=== PATIENT | male | born 1975 | race Caucasian/White ===

== ENCOUNTER 2019-03-14 11:12 | Inpatient (IN) ==
[2019-03-14 11:48] LABS: BASO# 0.03 X1000 (0.0-0.2); BASO% 0.1 % (0.0-0.8); EOS# 0.04 X1000 (0.0-0.7); EOS% 0.2 % (0.0-10.0); HEMOGLOBIN 15.1 g/dL (14.0-18.0); IMM GRAN# 0.12 X1000 (0.0-0.04); IMM GRAN% 0.5 % (0.0-0.5); LYMPH% 4.5 % (20.5-51.1); MCHC 34.3 g/dL (33-37); MCV 96.1 FL (81-99); MONO# 1.05 X1000 (0.11-0.59); MONO% 4.3 % (1.7-9.3); MPV 9.4 FL (7.4-10.4); NEUT# 21.94 X1000 (1.4-6.5); NEUT% 90.4 % (42.2-75.2); PLT 260 X1000 (130-400); RBC 4.58 XMIL (4.7-6.1); WBC 24.28 X1000 (4.8-10.8)
[2019-03-14 11:50] LABS: BILIRUBIN URINE NEGATIVE (NEGATIVE); BLOOD URINE 3+ (NEGATIVE); CLARITY CLEAR (CLEAR); COLOR YELLOW; GLUCOSE URINE NEGATIVE (NEGATIVE); KETONE URINE TRACE mg/dL (NEGATIVE); LEUKOCYTES URINE TRACE (NEGATIVE); NITRITE URINE NEGATIVE (NEGATIVE); PH URINE 6.5; PROTEIN URINE 1+(30 mg/dL) mg/dL (NEGATIVE); SP GRAVITY URINE 1.015; UROBILINOGEN URINE NORMAL
[2019-03-14 11:51] LABS: URINE EPITHELIAL CELLS <10 /HPF (<10); URINE RBC 20-40 /HPF (<10); URINE SOURCE CLEAN CATCH; URINE WBC <10 /HPF (<10)
[2019-03-14 11:58] LABS: ANISOCYTOSIS 1+; BANDS 1 % (0-1); LYMPHS 5 % (21-51); MONO 4 % (1-9); SEGS 90 % (42-75)
[2019-03-14 12:12] LABS: AGAP 15; ALBUMIN 4.6 g/dL (3.5-5.0); ALKALINE PHOSPHATASE 52 U/L (32-122); BUN 11 mg/dL (8-22); CALCIUM 10.1 mg/dL (8.8-10.2); CHLORIDE 94 mmol/L (98-107); COSMO 265; CREATININE 0.9 mg/dL (0.7-1.2); ESTIMATED GFR > 60; GLUCOSE 114 mg/dL (70-104); GOT 20 U/L (10-34); GPT 19 U/L (10-44); SODIUM 132 mmol/L (136-145); TCO2 24 mmol/L (25-35); TOTAL PROTEIN 8.2 g/dL (6.3-8.3)
[2019-03-14 12:17] LABS: LIPASE > 3000 U/L (13-60)
--- NOTE | 2019-03-14 12:37 | Diag Imaging Result Doc PS360 ---
EXAM: FLAT/UPRIGHT ABD/1 VIEW CHEST HISTORY: abd pain TECHNIQUE: Three views COMPARISON: None. FINDINGS: The lungs are well expanded. No pneumonia. No cardiomegaly. No free air beneath the diaphragm. The gallbladder has been removed. Mild air distended loops of bowel in the right abdomen. There is stool in the proximal colon. No organomegaly. IMPRESSION: Nonspecific bowel gas pattern. Follow-up films may be beneficial. Electronically signed by Rakesh Chavarria 03/14/2019 12:35 PM
[2019-03-14] MEDS ORDERED: DILAUDID IV ONE ×2 (13:03→14:41)
[2019-03-14] MEDS ORDERED: ZOFRAN IV ONE (13:03)
[2019-03-14 14:18] LABS: PROTIME 11.5 Seconds (11.0-16.0)
[2019-03-14 14:19] LABS: PTT 25.6 Seconds (22.3-41.8)
--- NOTE | 2019-03-14 14:49 | Diag Imaging Result Doc PS360 ---
EXAM: CT ABD/PELVIS W/IV CONT ONLY HISTORY: abdo pain TECHNIQUE: This exam was performed using automated exposure control, adjustment of mA or kV according to patient size, and/or use of iterative reconstruction technique. COMPARISON: 04/29/2014 FINDINGS: Lung bases: Unremarkable. There is marked peripancreatic soft tissue stranding and moderate free peripancreatic fluid consistent with acute pancreatitis. There is vague hypodensity in the region of the pancreatic head image 72 sequence 3 and image 77 sequence four consistent with more focal edema. No evidence for pseudocyst or abscess. Splenic vein is patent. There is adjacent focal thickening of the gastric antrum and descending duodenum. Hepatobiliary: Normal liver attenuation. No intrahepatic or extrahepatic biliary ductal dilatation is identified. Cholecystectomy.. No suspicious masses are appreciated. Adrenal glands/Spleen: Normal size and enhancement. No cysts or solid masses are appreciated. Kidneys: No nephrolithiasis or hydronephrosis is appreciated. Normal bilateral enhancement. No suspicious masses. Retroperitoneum: Normal caliber aorta. No lymphadenopathy. Appendix: Normal. No evidence for acute appendicitis. No pneumoperitoneum is identified. Pelvis: Reproductive organs show no acute abnormality. Urinary bladder is unremarkable. No acute bony abnormality is demonstrated. IMPRESSION: Findings consistent with acute pancreatitis with moderate peripancreatic fluid. Focal area of hypodensity pancreatic head may represent more focal edema. Clinical correlation and follow-up recommended. Electronically signed by Zayra Davis 03/14/2019 2:47 PM
[2019-03-14 14:53] LABS: INR 0.8
--- NOTE | 2019-03-14 14:57 | PROVIDER DOCUMENTATION ---
This chart was entered by Tali Welch Scribe, acting as scribe for Bk Uribe MD. HPI-Abdominal Pain/GI Problem - General Chief Complaint: Abdominal Pain Stated Complaint: STOMACH PAIN Time Seen by Provider: 03/14/19 12:46 Source: patient Allergies/Adverse Reactions: Patient Allergies Allergy/AdvReac Type Severity Reaction Status Date / Time No Known Allergies Allergy Verified 04/29/14 08:36 Home Medications: Home Medication List Medication Instructions Recorded Confirmed Last Taken Type NK [No Home Medications] 06/07/18 06/07/18 Unknown History - History of Present Illness-ABD Nature of Presenting Problems: Patient is a 43 year old male who presents with RUQ and RLQ abdominal pain. States nausea and vomiting with abdominal pain. Reports symptoms started 24 hours ago. History of pancreatitis. Denies diarrhea and constipation. States being seen by PCP this morning and was prescribed pain and nausea medications. Abdominal Pain Onset Location: reports: RUQ, RLQ Quality of Pain: reports: aching Severity in ED: reports: mild Onset/Duration: reports: 24 hours ago Timing: reports: still present Associated Symptoms: reports: nausea, vomiting. denies: constipation, diarrhea, fever/chills Last BM: this morning # of Vomiting Episodes: 1 Bruising or Bleeding Gums?: No Similar Symptoms Previously?: Yes Recently seen or treated by another doctor?: Yes Review of Systems - Adult - REVIEW OF SYSTEMS - ADULT Constitutional: reports: no symptoms reported. denies: chills, fever, fatique Eyes: reports: no symptoms reported Ears, Nose, Mouth & Throat: reports: no symptoms reported Cardiovascular: reports: no symptoms reported Respiratory: reports: no symptoms reported Gastrointestinal: reports: see HPI, abdominal pain, nausea, vomiting. denies: constipation, diarrhea Genitourinary: reports: no symptoms reported Musculoskeletal: reports: no symptoms reported Integumentary: reports: no symptoms reported Neurological: reports: no symptoms reported Psychiatric: reports: no symptoms reported Endocrine: reports: no symptoms reported Hematologic/Lymphatic: reports: no symptoms reported Allergic/Immunologic: reports: no symptoms reported All Other Systems: Reviewed and Negative Past History - Adult - PAST MEDICAL HISTORY-ADULT Review of Records: reports: Old Records Reviewed, Nursing Assessment Review, Medications Reviewed, Social history reviewed & non-contributory. Major Childhood Illnesses: reports: denies history Cardiovascular: reports: HTN Respiratory: reports: denies history Gastrointestinal: reports: cholelithiasis, pancreatitis Obstetrical/Gynecological: reports: denies history Genitourinary: reports: denies history Musculoskeletal: reports: denies history Neurological: reports: denies history Psychiatric: reports: denies history Endocrine/Immune: reports: denies history Other Conditions: reports: denies history - PRIOR SURGERIES/PROCEDURES Surgical/Procedure History: reports: cholecystectomy - IMMUNIZATION STATUS Childhood Immunizations: See Nurse Assessment Flu Vaccine: See Nurse Assessment - FAMILY HISTORY Family History: reviewed, not pertinent - SOCIAL HISTORY Smoking: cigarettes, greater than 1 pack/day Provider spent 3-5 mins advising pt. on dangers of tobacco.: Discussed manners to quit use, and f/u contacts for add'l counseling. Substance Use: alcohol Alcohol Use Frequency: occasionally Physical Exam-General - PHYSICAL EXAM-ADULT Initial Vital Signs Reviewed: Yes - CONSTITUTIONAL General Appearance: alert, mild distress. negative: lethargic - HEAD, EARS, NOSE, MOUTH & THROAT HENMT: normocephalic/atraumatic, moist mucous membranes. negative: angioedema - RESPIRATORY Respiratory: chest non-tender, lungs clear, normal breath sounds. negative: crackles, rhonchi - CARDIOVASCULAR Cardiovascular: normal peripheral pulses, regular rate, rhythm. negative: tachycardia - GASTROINTESTINAL (ABDOMEN) Abdominal Exam: normal bowel sounds, soft, tenderness (RUQ and epigastric). negative: distended, guarding - MUSCULOSKELETAL Extremity: normal inspection. negative: deformity, swelling - SKIN Integumentary: normal color, normal turgor, warm/dry. negative: diaphoresis, jaundice - NEUROLOGIC Neurologic: grossly normal. negative: aphasia, facial droop - PSYCHIATRIC Psych/Mental Status: normal mood/affect, oriented x 3. negative: anxious Progress - PLAN OF CARE/RESULTS Progress/Plan/Lab Results: Vital Signs - 8 hr 03/14/19 11:24 Temperature 98 F Pulse Rate 119 H Respiratory Rate 19 Blood Pressure 135/89 O2 Sat by Pulse Oximetry 97 Laboratory Results - last 24 hr 03/14/19 03/14/19 03/14/19 11:34 11:40 11:40 WBC 24.28 H RBC 4.58 L Hgb 15.1 Hct 44.0 MCV 96.1 MCH 33.0 H MCHC 34.3 RDW Std Deviation 13.0 Plt Count 260 MPV 9.4 Immature Gran % (Auto) 0.5 Neut % (Auto) 90.4 H Lymph % (Auto) 4.5 L Keith % (Auto) 4.3 Eos % (Auto) 0.2 Baso % (Auto) 0.1 Immature Gran # (Auto) 0.12 H Neut # (Auto) 21.94 H Lymph # (Auto) 1.10 L Keith # (Auto) 1.05 H Eos # (Auto) 0.04 Baso # (Auto) 0.03 Segmented Neutrophils 90 H Band Neutrophils 1 Lymphocytes 5 L Monocytes 4 Anisocytosis 1+ Sodium Potassium Chloride Carbon Dioxide Anion Gap BUN Creatinine Estimated GFR/1.73 m2 BUN/Creatinine Ratio Glucose Calculated Osmolality Calcium Total Bilirubin AST ALT Alkaline Phosphatase Total Protein Albumin Globulin Albumin/Globulin Ratio Amylase 1635 H Lipase Urine Source CLEAN CATCH Urine Color YELLOW Urine Clarity CLEAR Urine pH 6.5 Ur Specific [place] 1.015 Urine Protein 1+(30 mg/dL) A Urine Ketones TRACE Urine Blood 3+ A Urine Nitrite NEGATIVE Urine Bilirubin NEGATIVE Urine Urobilinogen NORMAL Urine Microscopic RBC 20-40 A Urine WBC TRACE A Urine Microscopic WBC <10 Ur Epithelial Cells <10 Urine Glucose NEGATIVE 03/14/19 11:40 WBC RBC Hgb Hct MCV MCH MCHC RDW Std Deviation Plt Count MPV Immature Gran % (Auto) Neut % (Auto) Lymph % (Auto) Keith % (Auto) Eos % (Auto) Baso % (Auto) Immature Gran # (Auto) Neut # (Auto) Lymph # (Auto) Keith # (Auto) Eos # (Auto) Baso # (Auto) Segmented Neutrophils Band Neutrophils Lymphocytes Monocytes Anisocytosis Sodium 132 L Potassium 4.0 Chloride 94 L Carbon Dioxide 24 L Anion Gap 15 BUN 11 Creatinine 0.9 Estimated GFR/1.73 m2 > 60 BUN/Creatinine Ratio 12 Glucose 114 H Calculated Osmolality 265 Calcium 10.1 Total Bilirubin 0.70 AST 20 ALT 19 Alkaline Phosphatase 52 Total Protein 8.2 Albumin 4.6 Globulin 4.0 Albumin/Globulin Ratio 1.0 Amylase Lipase > 3000 H Urine Source Urine Color Urine Clarity Urine pH Ur Specific [place] Urine Protein Urine Ketones Urine Blood Urine Nitrite Urine Bilirubin Urine Urobilinogen Urine Microscopic RBC Urine WBC Urine Microscopic WBC Ur Epithelial Cells Urine Glucose Orders Category Date Time Status CT ABD/PELVIS W/IV CONT ONLY [CT] Stat Exams 03/14/19 12:47 Ordered FLAT/UPRIGHT ABD/1 VIEW CHEST [RAD] Stat Exams 03/14/19 11:28 Completed AMYLASE [CHEM] Stat Lab 03/14/19 11:40 Completed CBC WITH DIFF [HEME] Stat Lab 03/14/19 11:40 Completed CMP [COMPREHENSIVE METABOLIC PANEL] [CHEM] Stat Lab 03/14/19 11:40 Completed LIPASE [CHEM] Stat Lab 03/14/19 11:[address] W/POSS RFLX CULT [URINALYSIS] Stat Lab 03/14/19 11:34 Completed Result Diagrams: 03/14/19 11:40 03/14/19 11:40 - XRAY 1 XRAY Study: Chest, Abdomen Impression: See EMR Report ( EXAM: FLAT/UPRIGHT ABD/1 VIEW CHEST HISTORY: abd pain TECHNIQUE: Three views COMPARISON: None. FINDINGS: The lungs are well expanded. No pneumonia. No cardiomegaly. No free air beneath the diaphragm. The gallbladder has been removed. Mild air distended loops of bowel in the right abdomen. There is stool in the proximal colon. No organomegaly. IMPRESSION: Nonspecific bowel gas pattern. Follow-up films may be beneficial. Electronically signed by Rakesh Chavarria 03/14/2019 12:35 PM 03/14/19 1235 Interpreting Physician: Rakesh Chavarria MD Dictated Date/Time: 03/14/19 1234 cc: Bk Uribe MD; Julio Mcelroy MD) - CT/MRI 1 CT Study: Abdomen, Pelvis Impression: See EMR Report (EXAM: CT ABD/PELVIS W/IV CONT ONLY HISTORY: abdo pain TECHNIQUE: This exam was performed using automated exposure control, adjustment of mA or kV according to patient size, and/or use of iterative reconstruction technique. COMPARISON: 04/29/2014 FINDINGS: Lung bases: Unremarkable. There is marked peripancreatic soft tissue stranding and moderate free peripancreatic fluid consistent with acute pancreatitis. There is vague hypodensity in the region of the pancreatic head image 72 sequence 3 and image 77 sequence four consistent with more focal edema. No evidence for pseudocyst or abscess. Splenic vein is patent. There is adjacent focal thickening of the gastric antrum and descending duodenum. Hepatobiliary: Normal liver attenuation. No intrahepatic or extrahepatic biliary ductal dilatat ion is identified. Cholecystectomy.. No suspicious masses are appreciated. Adrenal glands/Spleen: Normal size and enhancement. No cysts or solid masses are appreciated. Kidneys: No nephrolithiasis or hydronephrosis is appreciated. Normal bilateral enhancement. No suspicious masses. Retroperitoneum: Normal caliber aorta. No lymphadenopathy. Appendix: Normal. No evidence for acute appendicitis. No pneumoperitoneum is identified. Pelvis: Reproductive organs show no acute abnormality. Urinary bladder is unremarkable. No acute bony abnormality is demonstrated. IMPRESSION: Findings consistent with acute pancreatitis with moderate peripancreatic fluid. Focal area of hypodensity stern creatic head may represent more focal edema. Clinical correlation and follow-up recommended. Electronically signed by Zayra Davis 03/14/2019 2:47 PM 03/14/19 1447 Interpreting Physician: Zayra Davis MD Dictated Date/Time: 03/14/19 1438 cc: Bk Uribe MD; Julio Mcelroy MD) - CONSULTS/PCP/HOSPITALIST Notification #1 *Consult/PCP/Hospitalist*: MICHAEL Bauman for Hospitalist Time Discussed: 14:54 Reason/Comments: Dr. Uribe consulted with Merna about patient Consult Disposition: Will see in ED, Admit Departure - Departure Date of Disposition Decision: 03/14/19 Time of Disposition Decision: 14:54 DIAGNOSIS: Acute pancreatitis, Leukocytosis, Hyponatremia, Hematuria Disposition: ADMITTED INPATIENT 09 Certified Medical Emergency: Emergent Condition: Fair Referrals and Follow-Ups: Julio Mcelroy MD [Primary Care Provider] - - Critical Care Note This patient required my direct & personal management of CC.: Yes Total Time (mins): 35 Critical Care Statement: This patient required my direct personal management to treat or rule out processes, the absence of which, could potentiallly result in sudden, clinically significant life or limb threatening deterioration. Attestation - Physician/ FAREED Attestation Patient care was provided by Advanced Practice Provider:: No The physician spent face to face time with patient:: Yes Advanced Practice Provider documentation review:: Supervising physician onsite and consulted in the evaluation and care of this patient. The physician did have a face to face encounter with the patient. This chart was documented by the indicated scribe, (Tali Welch Scribe) and accurately reflects the services I performed and decisions made by , Bk Awan MD, as attested by the provider's signature.
[2019-03-14] MEDS ORDERED: NS 1,000 ML IV ONE ×2 (14:58→15:00)
[2019-03-14] MEDS ORDERED: TYLENOL PO PRN (15:04)
[2019-03-14] MEDS ORDERED: NORCO-7.5 PO PRN (15:04)
[2019-03-14 15:51] LABS: HEMOGLOBIN A1C 5.5 % (4.8-6.0)
[2019-03-14 16:01] LABS: FREE T4 1.38 ng/dL (0.93-1.70); TSH 0.98 uIUmL (0.27-4.20)
[2019-03-14] MEDS ORDERED: TORADOL IV ONE (16:17)
[2019-03-14] MEDS ORDERED: ROBAXIN 1,000 MG in NS 50 ML IV ONE (16:17)
[2019-03-14] MEDS ORDERED: MORPHINE IV ONE (16:17)
[2019-03-14] MEDS ORDERED: ATIVAN IV ONE (16:18)
[2019-03-14 17:10] LABS: UR AMPHETAMINES QUAL NONE DETECTED (NONE DETECT); UR BARBITUATES QUAL NONE DETECTED (NONE DETECT); UR BENZODIAZEPIN QUAL NONE DETECTED (NONE DETECT); UR CANNABINOIDS QUAL NONE DETECTED (NONE DETECT); UR COCAINE QUAL NONE DETECTED (NONE DETECT); UR METHADONE QUAL NONE DETECTED (NONE DETECT); UR METHAMPHETAMINE QUAL NONE DETECTED (NONE DETECT); UR OPIATES QUAL PRESUMPTIVE POSITIVE (NONE DETECT); UR OXYCODONE QUAL NONE DETECTED (NONE DETECT); UR PCP QUAL NONE DETECTED (NONE DETECT); UR PROPOXYPHENE QUAL NONE DETECTED (NONE DETECT); UR TCA QUAL NONE DETECTED (NONE DETECT)
[2019-03-14] MEDS: PRILOSEC PO SCH (20:03)
[2019-03-14] MEDS: DILAUDID IV PRN ×2 (20:03→23:04)
--- NOTE | 2019-03-14 20:14 | HISTORY AND PHYSICAL ---
PRIMARY CARE PROVIDER: Julio Mcelroy MD CHIEF COMPLAINT: Right abdominal pain that radiates to the back. HISTORY OF PRESENT ILLNESS: Mr. Elvis Schultz is a 43-year-old male with a medical history of acute pancreatitis x2 other times. He states he has never gone to the hospital with it. He has always gone to Julio Mcelroy, his primary, who then gives him medication for pain and pain medication for nausea and makes him be on a clear liquid diet, and it usually clears up on its own. He also has a history of hypertension and GERD. At this time, he states that the symptoms started yesterday morning with right upper quadrant abdominal pain that radiated to the right back and up the back. Then eventually, it started developing into a generalized abdominal pain or discomfort that felt like fire in his abdomen and then started developing back spasms and this morning had nausea/vomiting. He presented to the emergency department here at [facility] with these complaints. He had abdominal and pelvic CT which reveals that he has findings that are consistent with acute pancreatitis with moderate peripancreatic fluid, focal area of hypodensity pancreatic head may represent more focal edema. The pain is so severe that we will admit and treat him symptomatically and give him IV fluid hydration as well. We will repeat amylase and lipase for in the morning. PAST MEDICAL HISTORY: 1. Acute pancreatitis twice. 2. Chronic pancreatitis. 3. Hypertension. 4. GERD. SURGICAL HISTORY: Cholecystectomy in 2010. SOCIAL HISTORY: He has been a 4-psmz-fju-day smoker since the age of 17. He drinks 4 or 5 beers 2 to 3 times per month, with the last time being last week. No illicit drug use. Girlfriend is at the bedside. He currently works at [employer]. FAMILY HISTORY: Mother had diabetes. Father had heart disease that started at the age of 35. ALLERGIES: No known drug allergies. HOME MEDICATIONS: No known home medications. REVIEW OF SYSTEMS: A 14 point review of systems is complete, and all are negative for those mentioned in the above HPI. PHYSICAL EXAMINATION: VITAL SIGNS: Temperature 98.0 degrees, heart rate 119, respiratory rate 18, blood pressure 152/101, O2 saturation 96% on room air. GENERAL: Mr. Elvis Schultz is a 43-year-old male. He appears to be in acute distress from the severe pain that he is experiencing. He still able answer the questions appropriately. HEENT: Atraumatic, normocephalic. Pupils equal, round, and reactive to light. Extraocular movements intact. Mucous membranes are dry. NECK: Trachea midline. CARDIOVASCULAR: S1, S2. Tachycardic rate and rhythm. No rubs, gallops, murmurs. No lower extremity edema. +2 dorsalis and radial pulses. Negative for JVD and carotid bruits. PULMONARY: Clear to auscultation bilateral breath sounds. No accessory muscle use or work of breathing noted. GASTROINTESTINAL: Soft but tender in all 4 quadrants and that radiates all the way to the back. Hypoactive bowel sounds x4. EXTREMITIES: Moves all extremities equally with full range of motion. NEUROLOGIC: A and O x3. Follows commands. Sensory is intact. SKIN: Warm, dry, intact. LABORATORY DATA: White blood cells 24,000, hemoglobin 15, hematocrit 44, platelet count 260,000. INR 0.80, PTT is 25.6. Sodium 132, potassium 4.0, BUN 11, creatinine 0.9, glucose 114. Hemoglobin A1c is 5.5. Calcium 10.0, bilirubin 0.70, AST 20, ALT 19. CK 125, troponin less than 0.01. Albumin 4.6. Triglycerides 126, total cholesterol 141, LDL 75, HDL 61. Amylase 1635, lipase greater than 3000. Serum lactate 1.2. TSH 0.98, free T4 is 1.38. Urinalysis: 1+ protein, 3+ blood, 20-40 microscopic red blood cells, trace white blood cells, otherwise negative. Alcohol is 0. IMAGING: Abdominal x-ray: Nonspecific bowel gas pattern. Follow-up films could be beneficial. Abdominal and pelvic CT: Findings consistent with acute pancreatitis with moderate peripancreatic fluid. Focal area of hypodensity pancreatic head may represent more focal edema. ASSESSMENT AND PLAN: 1. Acute on chronic pancreatitis. He has a history of elevated amylase and lipase. His lipase usually run anywhere from a normal 25 to the highest of being 253, and this is been since 2013; currently it is greater than 3000. His amylase has been as high as 237, but currently is 1635. He will be on clear liquid diet, will get IV fluid hydration, and we will treat him symptomatically as well. His triglyceride level is normal. He is negative for alcohol unless he is not being clear with the volume of alcohol. There is no type of obstructive cause for the pancreatitis. So, again we will treat with fluids and symptomatic treatment as well. 2. Hypertension. May have to add a PRN. His pain level is causing him to have higher blood pressures. 3. Gastroesophageal reflux disease. We have added Prilosec. 4. Deep venous thrombosis prophylaxis. SCDs. 5. Complaints of back spasms and complaints that Dilaudid is not helping with his pain so we will try dose of morphine, Toradol, and we will do a dose of IV Robaxin to see if that helps. He is literally in tears from the pain. 6. Significant anxiety at this time. We will give a dose of IV Ativan which will also help with the nausea. 7. Tobacco abuse. Cessation discussed. Dictated by MICHAEL Ryan for Oscar Delacruz MD cc: MICHAEL Ryan MD
--- NOTE | 2019-03-14 21:29 | HISTORY AND PHYSICAL ---
CHIEF COMPLAINT: Abdominal pain. HISTORY OF PRESENT ILLNESS: The patient is a 43-year-old male who presented to [facility]'s ER with complaints of right upper and right lower quadrant abdominal pain. States he has had some nausea, vomiting and abdominal pain. On exam patient is awake, alert. He is in no respiratory distress. He is in obvious pain. The patient's amylase 1635, lipase greater than 3000. We are going to admit him to the hospital, treat him for pancreatitis, keep him NPO and we will follow. The patient notes that he does drink alcohol occasionally has not drank recently. He states he has had pancreatitis before but he does not appear to have been admitted to this hospital for that. We will keep him NPO, place him on antibiotics. Check an ultrasound of his gallbladder, check triglycerides and will follow. Please see full note. cc: Oscar Delacruz MD
[2019-03-14] MEDS: ZOSYN 3.375 GM in NS 50 ML IV SCH (21:43)
[2019-03-14] MEDS: ZOFRAN IV PRN (23:04)
[2019-03-15] MEDS: ZOSYN 3.375 GM in NS 50 ML IV SCH ×4 (03:24→21:55)
[2019-03-15] MEDS: ZOFRAN IV PRN ×2 (03:24→07:39)
[2019-03-15] MEDS: DILAUDID IV PRN ×3 (03:25→11:59)
[2019-03-15 06:38] LABS: AGAP 12; ALBUMIN 3.6 g/dL (3.5-5.0); ALKALINE PHOSPHATASE 91 U/L (32-122); BUN 12 mg/dL (8-22); CALCIUM 8.6 mg/dL (8.8-10.2); CHLORIDE 89 mmol/L (98-107); COSMO 254; CREATININE 1.1 mg/dL (0.7-1.2); ESTIMATED GFR > 60; GLUCOSE 106 mg/dL (70-104); GOT 196 U/L (10-34); GPT 139 U/L (10-44); MAGNESIUM 1.1 mg/dL (1.5-2.7); POTASSIUM 4.2 mmol/L (3.5-5.1); SODIUM 126 mmol/L (136-145); TCO2 25 mmol/L (25-35); TOTAL PROTEIN 6.8 g/dL (6.3-8.3)
[2019-03-15 06:54] LABS: AMYLASE 1623 U/L (20-200); LIPASE 2194 U/L (13-60)
[2019-03-15 07:08] LABS: BASO# 0.01 X1000 (0.0-0.2); HEMATOCRIT 42.5 % (42.0-52.0); HEMOGLOBIN 14.3 g/dL (14.0-18.0); IMM GRAN# 0.09 X1000 (0.0-0.04); IMM GRAN% 0.4 % (0.0-0.5); LYMPH# 0.61 X1000 (1.2-3.4); LYMPH% 2.9 % (20.5-51.1); MCH 32.7 PG (27-31); MCHC 33.6 g/dL (33-37); MCV 97.3 FL (81-99); MONO% 4.3 % (1.7-9.3); MPV 9.7 FL (7.4-10.4); NEUT# 19.52 X1000 (1.4-6.5); NEUT% 92.4 % (42.2-75.2); PLT 207 X1000 (130-400); RBC 4.37 XMIL (4.7-6.1); RDW 13.4 % (11.5-14.5); WBC 21.13 X1000 (4.8-10.8)
[2019-03-15 07:20] LABS: LYMPHS 9 % (21-51); MONO 1 % (1-9); SEGS 90 % (42-75)
[2019-03-15] MEDS: PRILOSEC PO SCH ×2 (10:09→20:21)
--- NOTE | 2019-03-15 13:58 | PROGRESS NOTE ---
DATE: 03/15/2019 SUBJECTIVE: The patient reported still having pain in the epigastric area, even though he is receiving Dilaudid. He requests to have a change in pain medications. OBJECTIVE: Vital Signs: Temperature 98.1 degrees, heart rate 120, respiratory rate 16, blood pressure 109/68, O2 saturation 98% on room air. General Examination: This is a 43-year-old, male, lying in bed, in no acute distress. Cardiovascular Examination: S1 and S2 heard. No murmurs, gallops, or rubs. Regular rate and rhythm. Respiratory Examination: Clear bilaterally to auscultation. No work of breathing or using accessory muscles. Abdomen: Soft. Painful to palpation in the epigastric area. No signs of peritoneal irritation. No rebound. Extremities: No clubbing, cyanosis, or edema. Peripheral pulses present in both legs. Neurological Examination: The patient is alert and oriented x3. Moves 4 extremities. Laboratory Data: White cell count 21.13. Sodium 126, magnesium 1.1. ASSESSMENT AND PLAN: 1. Acute on chronic pancreatitis. The patient reports having previous episodes of acute pancreatitis. Clinically, this patient reports still pain in the epigastric area so we are going to stop Dilaudid and change it to Demerol 50 mg every 3 hours as needed. We will see if that helps. White cell count is still elevated. At this point, we will continue to check CBC daily. We will continue with management as mentioned above. 2. Hypertension. Actually, the pain is causing the blood pressure to go high but blood pressure from this morning has been in the range of the 100s. At this point, we are not going to make any changes to his current treatment. 3. Gastroesophageal reflux disease. We will continue with Prilosec. 4. Back spasm. We will continue with intravenous Robaxin. 5. Disposition. We will continue to monitor this patient closely. cc: Hermilo Acuna MD
[2019-03-15] MEDS: DEMEROL IV PRN ×3 (14:27→21:55)
--- NOTE | 2019-03-15 15:16 | Diag Imaging Result Doc PS360 ---
EXAM: US ABDOMEN-COMPLETE - 03/15/2019 HISTORY: abd pain TECHNIQUE: Ultrasound abdomen COMPARISON: 03/14/2019 CT abdomen/pelvis FINDINGS: There are no abnormalities of the liver or spleen identified. Doppler image shows hepatopedal flow in the portal vein. There is no ascites seen. The gallbladder surgically absent. Common bile duct is slightly distended at 7.7 mm, which is not unusual for post cholecystectomy state. There is no stone identified in the visualized portion of the common bile duct. The pancreas is obscured by bowel gas artifacts. There are no abnormalities of the bilateral kidneys identified. The visualized IVC is of normal caliber. The aorta is obscured by bowel gas artifacts. IMPRESSION: Status post cholecystectomy. Slightly distended common bile duct at 7.7 mm, which is not unusual for post cholecystectomy state. No visible abnormality otherwise. The pancreas is obscured by artifacts. Electronically signed by Edmundo Abraham 03/15/2019 3:14 PM
[2019-03-15] MEDS: NICODERM PATCH TD PRN (17:28)
[2019-03-15] MEDS: MYLICON PO SCH ×2 (17:28→20:21)
[2019-03-16] MEDS: DEMEROL IV PRN ×3 (01:22→09:05)
[2019-03-16] MEDS: ZOSYN 3.375 GM in NS 50 ML IV SCH ×4 (03:08→21:43)
[2019-03-16] MEDS: ZOFRAN IV PRN ×4 (05:14→21:43)
[2019-03-16 06:04] LABS: AGAP 19; ALBUMIN 3.3 g/dL (3.5-5.0); ALKALINE PHOSPHATASE 115 U/L (32-122); BUN 19 mg/dL (8-22); CALCIUM 8.1 mg/dL (8.8-10.2); CHLORIDE 85 mmol/L (98-107); COSMO 259; CREATININE 1.2 mg/dL (0.7-1.2); ESTIMATED GFR > 60; GLUCOSE 117 mg/dL (70-104); GOT 70 U/L (10-34); GPT 122 U/L (10-44); MAGNESIUM 1.2 mg/dL (1.5-2.7); SODIUM 127 mmol/L (136-145); TCO2 24 mmol/L (25-35); TOTAL PROTEIN 6.8 g/dL (6.3-8.3)
[2019-03-16 06:24] LABS: BASO# 0.01 X1000 (0.0-0.2); EOS# 0.02 X1000 (0.0-0.7); EOS% 0.1 % (0.0-10.0); HEMATOCRIT 39.6 % (42.0-52.0); HEMOGLOBIN 13.2 g/dL (14.0-18.0); IMM GRAN# 0.15 X1000 (0.0-0.04); IMM GRAN% 0.7 % (0.0-0.5); LYMPH# 0.72 X1000 (1.2-3.4); LYMPH% 3.2 % (20.5-51.1); MCH 32.6 PG (27-31); MCHC 33.3 g/dL (33-37); MCV 97.8 FL (81-99); MONO# 1.47 X1000 (0.11-0.59); MONO% 6.6 % (1.7-9.3); MPV 9.8 FL (7.4-10.4); NEUT# 19.97 X1000 (1.4-6.5); NEUT% 89.4 % (42.2-75.2); PLT 201 X1000 (130-400); RBC 4.05 XMIL (4.7-6.1); RDW 13.4 % (11.5-14.5); WBC 22.34 X1000 (4.8-10.8)
[2019-03-16 06:36] LABS: LYMPHS 6 % (21-51); MONO 3 % (1-9); SEGS 91 % (42-75)
[2019-03-16] MEDS ORDERED: MAGNESIUM SULFATE 2 GM/S.W.I. 2 GM/50 ML IVPB IV ONE (07:59)
[2019-03-16] MEDS: MYLICON PO SCH ×4 (09:05→21:43)
[2019-03-16] MEDS: PRILOSEC PO SCH ×2 (09:05→21:43)
[2019-03-16] MEDS: ROBAXIN 1,000 MG in NS 50 ML IV SCH ×2 (10:17→17:08)
[2019-03-16] MEDS: DILAUDID IV PRN ×4 (11:56→21:43)
--- NOTE | 2019-03-16 12:40 | PROGRESS NOTE ---
DATE: 03/16/2019 SUBJECTIVE: Patient reports still having some pain in the epigastric area that is definitely not completely well controlled with Demerol so he requests to have Dilaudid back. He also reports that he had a good improvement with Robaxin for his back pain. OBJECTIVE: Vital Signs: Temperature 97.5, heart rate 69, respiratory rate 18, blood pressure 121/78, O2 saturation 100% on room air. General Examination: This is a 43-year-old, male, lying in bed, in no acute distress. Cardiovascular: S1, S2 heard. No murmurs, gallops, or rubs. Regular rate and rhythm. Respiratory: Clear bilaterally to auscultation. No work of breathing or using accessory muscles. Abdomen: Soft. Nontender to palpation. Bowel sounds present. No organomegaly. Extremities: No clubbing, cyanosis, or edema. Peripheral pulses present in both legs. Neurological: Patient is alert and oriented x3. Moves 4 extremities. LABORATORY DATA: White cell count 22,000. ASSESSMENT AND PLAN: 1. Acute on chronic pancreatitis. Patient continues to have abdominal pain. White cell count is still elevated. At this point, we are going to switch medications back to Dilaudid and stop Demerol. We will continue checking CBC daily. 2. Hypertension. Blood pressure is under control. We will continue with the same management. 3. Gastroesophageal reflux disease. We will continue Prilosec. 4. Back spasm. The patient will continue receiving IV Robaxin. 5. Disposition: The patient is aware that because of not well controlled abdominal pain and leukocytosis he needs to stay with us for a few more days. Patient acknowledged understanding. cc: Hermilo Acuna MD
[2019-03-16] MEDS: NICODERM PATCH TD PRN (17:08)
[2019-03-16] MEDS: MIRALAX PO SCH (21:42)
[2019-03-17] MEDS: DILAUDID IV PRN ×7 (00:57→21:19)
[2019-03-17] MEDS: ZOFRAN IV PRN ×4 (00:58→15:20)
[2019-03-17] MEDS: ROBAXIN 1,000 MG in NS 50 ML IV SCH ×3 (00:58→16:17)
[2019-03-17] MEDS: ZOSYN 3.375 GM in NS 50 ML IV SCH (04:45)
[2019-03-17 06:15] LABS: BASO# 0.01 X1000 (0.0-0.2); EOS# 0.09 X1000 (0.0-0.7); EOS% 0.4 % (0.0-10.0); HEMATOCRIT 32.6 % (42.0-52.0); HEMOGLOBIN 10.8 g/dL (14.0-18.0); IMM GRAN% 0.5 % (0.0-0.5); LYMPH# 0.93 X1000 (1.2-3.4); LYMPH% 4.5 % (20.5-51.1); MCHC 33.1 g/dL (33-37); MCV 96.7 FL (81-99); MONO% 7.2 % (1.7-9.3); MPV 9.8 FL (7.4-10.4); NEUT# 18.26 X1000 (1.4-6.5); NEUT% 87.4 % (42.2-75.2); PLT 226 X1000 (130-400); RBC 3.37 XMIL (4.7-6.1); RDW 12.9 % (11.5-14.5); WBC 20.89 X1000 (4.8-10.8)
[2019-03-17] MEDS: PRILOSEC PO SCH ×2 (06:17→21:20)
[2019-03-17 06:40] LABS: AGAP 13; ALBUMIN 2.9 g/dL (3.5-5.0); ALKALINE PHOSPHATASE 297 U/L (32-122); BUN 24 mg/dL (8-22); CALCIUM 7.4 mg/dL (8.8-10.2); CHLORIDE 87 mmol/L (98-107); COSMO 249; CREATININE 1.2 mg/dL (0.7-1.2); ESTIMATED GFR > 60; GLUCOSE 88 mg/dL (70-104); GOT 28 U/L (10-34); GPT 58 U/L (10-44); PHOSPHORUS 1.9 mg/dL (2.7-4.5); POTASSIUM 3.3 mmol/L (3.5-5.1); SODIUM 122 mmol/L (136-145); TCO2 22 mmol/L (25-35); TOTAL PROTEIN 6.6 g/dL (6.3-8.3)
[2019-03-17] MEDS: MOVANTIK PO SCH (08:25)
[2019-03-17] MEDS: MIRALAX PO SCH ×2 (08:25→21:16)
[2019-03-17] MEDS: MYLICON PO SCH ×4 (08:25→21:20)
[2019-03-17] MEDS ORDERED: SODIUM PHOSPHATE 35 MMOL in NS 250 ML IV ONE (08:37)
[2019-03-17] MEDS: MERREM 1 GM in NS 50 ML IV SCH ×2 (11:09→18:24)
--- NOTE | 2019-03-17 13:13 | PROGRESS NOTE ---
DATE: 03/17/2019 SUBJECTIVE: The patient reports the pain in the epigastric area is better. He also reports less back pain as well after administration of Robaxin. OBJECTIVE: Vital Signs: Temperature 98.1 degrees, heart rate 106, respiratory rate 18, blood pressure 107/64, O2 saturation 98% on room air. General Examination: This is a 43-year-old, male, lying in bed, in no acute distress. Cardiovascular Examination: S1 and S2 heard. No murmurs, gallops, or rubs. Regular rate and rhythm. Respiratory Examination: Clear bilaterally to auscultation. No work of breathing or using accessory muscles. Abdomen: Soft. Mildly tender to palpation in the epigastric area but there are no signs of peritoneal irritation. Bowel sounds present. No organomegaly. Extremities: No clubbing, cyanosis, or edema. Peripheral pulses present in both legs. Neurological Examination: The patient is alert and oriented x3. Moves 4 extremities. Laboratory Data: White cell count is 20,000 today. ASSESSMENT AND PLAN: 1. Acute on chronic pancreatitis. Even though abdominal pain is better, the white cell count continues to be elevated. I do not know if this is an infected pancreatitis but considering the persistent elevation in the white cell count, we will change Zosyn for meropenem 1 g intravenously every 8 hours. We will continue checking CBC daily. 2. Hypertension. Blood pressure is under control. We will continue with the same medications. 3. Gastroesophageal reflux disease. We will continue Prilosec. 4. Back pain. We will continue with intravenous Robaxin. 5. Disposition. At this point, we will continue to monitor this patient closely. Because of leukocytosis will continue to monitor him in the hospital. cc: Hermilo Acuna MD [facility]ENTERMagdalene
[2019-03-17] MEDS: MAALOX PLUS LIQUID PO PRN (16:13)
[2019-03-17] MEDS: SODIUM CHLORIDE 0.9% INJ PRN (21:18)
[2019-03-17] MEDS: PHENERGAN IV PRN (21:18)
[2019-03-17] MEDS: NICODERM PATCH TD PRN (21:29)
[2019-03-18] MEDS: ROBAXIN 1,000 MG in NS 50 ML IV SCH ×3 (00:22→17:51)
[2019-03-18] MEDS: ZOFRAN IV PRN ×4 (00:26→20:14)
[2019-03-18] MEDS: SODIUM CHLORIDE 0.9% INJ PRN ×5 (00:26→23:16)
[2019-03-18] MEDS: DILAUDID IV PRN ×8 (00:26→23:16)
[2019-03-18] MEDS: MAALOX PLUS LIQUID PO PRN ×3 (01:36→16:49)
[2019-03-18] MEDS: MERREM 1 GM in NS 50 ML IV SCH ×3 (02:49→18:44)
[2019-03-18] MEDS: PHENERGAN IV PRN ×4 (02:53→23:16)
[2019-03-18 06:44] LABS: BASO# 0.02 X1000 (0.0-0.2); BASO% 0.1 % (0.0-0.8); EOS# 0.06 X1000 (0.0-0.7); EOS% 0.3 % (0.0-10.0); HEMOGLOBIN 10.3 g/dL (14.0-18.0); IMM GRAN# 0.15 X1000 (0.0-0.04); IMM GRAN% 0.8 % (0.0-0.5); LYMPH# 0.85 X1000 (1.2-3.4); LYMPH% 4.4 % (20.5-51.1); MCH 32.3 PG (27-31); MCHC 33.2 g/dL (33-37); MCV 97.2 FL (81-99); MONO# 1.59 X1000 (0.11-0.59); MONO% 8.3 % (1.7-9.3); MPV 9.5 FL (7.4-10.4); NEUT% 86.1 % (42.2-75.2); PLT 254 X1000 (130-400); RBC 3.19 XMIL (4.7-6.1); WBC 19.17 X1000 (4.8-10.8)
[2019-03-18 06:46] LABS: ESTIMATED GFR > 60
[2019-03-18] MEDS: PRILOSEC PO SCH ×2 (06:48→20:13)
[2019-03-18 06:55] LABS: AGAP 11; ALKALINE PHOSPHATASE 113 U/L (32-122); BUN 16 mg/dL (8-22); CALCIUM 7.1 mg/dL (8.8-10.2); CHLORIDE 89 mmol/L (98-107); COSMO 250; CREATININE 0.9 mg/dL (0.7-1.2); GLUCOSE 86 mg/dL (70-104); MAGNESIUM 2.5 mg/dL (1.5-2.7); POTASSIUM 2.9 mmol/L (3.5-5.1); SODIUM 124 mmol/L (136-145); TCO2 24 mmol/L (25-35); TOTAL PROTEIN 6.7 g/dL (6.3-8.3)
[2019-03-18 06:59] LABS: GOT 20 U/L (10-34); GPT 37 U/L (10-44)
[2019-03-18 08:01] LABS: ANISOCYTOSIS 1+; BANDS 5 % (0-1); LYMPHS 6 % (21-51); MONO 8 % (1-9); SEGS 81 % (42-75)
[2019-03-18] MEDS: MOVANTIK PO SCH (08:07)
[2019-03-18] MEDS: MYLICON PO SCH ×4 (08:08→20:14)
[2019-03-18] MEDS: MIRALAX PO SCH ×2 (08:08→20:13)
[2019-03-18] MEDS ORDERED: SAMSCA PO ONE (09:05)
[2019-03-18] MEDS: POTASSIUM CHLORIDE 60 MEQ in NS 500 ML IV SCH ×2 (11:48→20:13)
--- NOTE | 2019-03-18 11:59 | PROGRESS NOTE ---
DATE: 03/18/2019 SUBJECTIVE: Patient reports pain is much better controlled. Denies any fever or chills. OBJECTIVE: Vital Signs: Temperature 98.7 degrees, heart rate 106, respiratory rate 16, blood pressure 114/70, O2 saturation 100% on room air. General Examination: This is a 43-year-old, male, lying in bed, in no acute distress. Cardiovascular: S1, S2 heard. No murmurs, gallops, or rubs. Regular rate and rhythm. Respiratory: Clear bilaterally to auscultation. No work of breathing or using accessory muscles. Abdomen: Distended, tympanic to palpation but no signs of peritoneal irritation. No rebound. Bowel sounds distant but present. No organomegaly noted. Extremities: No clubbing, cyanosis, or edema. Peripheral pulses present in both legs. Neurological: Patient alert and oriented x3. Moves 4 extremities. LABORATORY DATA: White cell count 19.7, hemoglobin 10.3, hematocrit 31.0, platelets 254,000. Sodium 124 with potassium 2.9. ASSESSMENT AND PLAN: 1. Acute on chronic pancreatitis. White cell count continues to be elevated, a little bit better in comparing with yesterday. Abdominal pain, according to him, is better controlled. We will continue with same management. We will continue with meropenem. We will continue to check BMP daily. 2. Hyponatremia. I think at this point we will stop IV fluids. We provided 1 dose of Samsca. 3. Hypokalemia. We will replace potassium today. 4. Disposition. We will continue to monitor this patient closely. Most likely will be kept over the weekend and we will check on Thursday if he is ready to go. Patient reports that he has to start working Thursday and I told him that we will see how he is doing that day. cc: Hermilo Acuna MD
[2019-03-18] MEDS: NICODERM PATCH TD PRN (18:52)
[2019-03-19] MEDS: ROBAXIN 1,000 MG in NS 50 ML IV SCH ×3 (00:42→16:52)
[2019-03-19] MEDS: MAALOX PLUS LIQUID PO PRN ×2 (01:31→23:20)
[2019-03-19] MEDS: DILAUDID IV PRN ×7 (03:36→23:20)
[2019-03-19] MEDS: ZOFRAN IV PRN ×4 (03:36→23:20)
[2019-03-19] MEDS: MERREM 1 GM in NS 50 ML IV SCH ×3 (03:37→18:55)
[2019-03-19 06:19] LABS: BASO# 0.03 X1000 (0.0-0.2); BASO% 0.1 % (0.0-0.8); EOS# 0.04 X1000 (0.0-0.7); EOS% 0.2 % (0.0-10.0); HEMATOCRIT 29.7 % (42.0-52.0); IMM GRAN# 0.43 X1000 (0.0-0.04); LYMPH# 0.84 X1000 (1.2-3.4); MCH 33.2 PG (27-31); MCHC 33.7 g/dL (33-37); MCV 98.7 FL (81-99); MONO# 1.76 X1000 (0.11-0.59); MONO% 8.3 % (1.7-9.3); MPV 9.7 FL (7.4-10.4); NEUT# 17.98 X1000 (1.4-6.5); NEUT% 85.4 % (42.2-75.2); PLT 301 X1000 (130-400); RBC 3.01 XMIL (4.7-6.1); RDW 13.4 % (11.5-14.5); WBC 21.08 X1000 (4.8-10.8)
[2019-03-19 06:38] LABS: AGAP 11; ALBUMIN 2.8 g/dL (3.5-5.0); ALKALINE PHOSPHATASE 177 U/L (32-122); BUN 14 mg/dL (8-22); CALCIUM 8.1 mg/dL (8.8-10.2); CHLORIDE 98 mmol/L (98-107); COSMO 266; ESTIMATED GFR > 60; GLUCOSE 113 mg/dL (70-104); GOT 31 U/L (10-34); GPT 38 U/L (10-44); MAGNESIUM 2.6 mg/dL (1.5-2.7); POTASSIUM 3.7 mmol/L (3.5-5.1); SODIUM 132 mmol/L (136-145); TCO2 23 mmol/L (25-35); TOTAL PROTEIN 6.6 g/dL (6.3-8.3)
[2019-03-19] MEDS: PRILOSEC PO SCH ×2 (06:38→20:15)
[2019-03-19] MEDS: MOVANTIK PO SCH (06:38)
[2019-03-19] MEDS: PHENERGAN IV PRN ×3 (06:38→20:16)
[2019-03-19] MEDS: SODIUM CHLORIDE 0.9% INJ PRN ×3 (06:38→20:16)
[2019-03-19 07:04] LABS: BANDS 1 % (0-1); LYMPHS 10 % (21-51); MONO 4 % (1-9); SEGS 84 % (42-75)
[2019-03-19 07:05] LABS: LARGE PLATELETS OCCASIONAL; POIKILOCYTOSIS OCCASIONAL; STOMATOCYTES OCCASIONAL
--- NOTE | 2019-03-19 09:35 | PROGRESS NOTE ---
DATE: 03/19/2019 SUBJECTIVE: Patient continues to have some abdominal pain in his epigastrium. He also states that he does not have any appetite. OBJECTIVE: Vital Signs: Temperature 98 degrees, pulse 102 per minute, respiratory rate 18 per minute, blood pressure 115/68, pulse oximetry 96% on room air. General: Patient is alert and oriented x3. He does not appear to be in any acute distress. Cardiovascular system: First and second heart sounds are audible without any murmurs or gallops. Respiratory system: Bilateral lung air entry is good without any rales or rhonchi. Gastrointestinal System: Abdomen is soft and moderately tender on deep palpation in epigastrium. No guarding or rigidity are present. Bowel sounds are normal. DIAGNOSTIC DATA: CBC shows WBC count of 21.08 with a 85.4% neutrophils. Rest of the CBC shows hemoglobin of 10.0 and hematocrit 29.7. Platelet counts are normal at 301. In comparison, his hemoglobin and hematocrit were 10.3 and 31.0 yesterday. On admission, hemoglobin and hematocrit were 15.1 and 44.0, however. Chemistry shows sodium level of 132. Rest of the chemistries mostly nondiagnostic. In comparison, his sodium levels were 124 yesterday. IMPRESSION: 1. Acute on chronic pancreatitis. 2. Hyponatremia, that has now significantly improved. 3. Anemia that is slightly getting worse day by day. 4. Leukocytosis that is persistent. PLAN: I am going to put the patient back to NPO and give him IV fluids. We will continue with broad-spectrum antibiotics, meropenem, and give him supportive care. We will continue to monitor his electrolytes and hemoglobin and hematocrit . I am going to have a repeat CT scan of the abdomen and pelvis tomorrow morning for evaluation. Further recommendations will be given as per hospital course. cc: Jean Christensen MD
[2019-03-19] MEDS: MIRALAX PO SCH ×2 (09:54→20:16)
[2019-03-19] MEDS: MYLICON PO SCH ×4 (09:54→20:16)
[2019-03-19] MEDS: NS 1,000 ML IV SCH ×2 (10:03→23:20)
[2019-03-19] MEDS: NICODERM PATCH TD PRN ×2 (16:53→20:15)
[2019-03-20] MEDS: ROBAXIN 1,000 MG in NS 50 ML IV SCH ×2 (01:39→09:41)
[2019-03-20] MEDS: SODIUM CHLORIDE 0.9% INJ PRN (02:27)
[2019-03-20] MEDS: DILAUDID IV PRN ×3 (02:27→09:32)
[2019-03-20] MEDS: PHENERGAN IV PRN ×2 (02:27→09:32)
[2019-03-20] MEDS: MERREM 1 GM in NS 50 ML IV SCH ×2 (02:28→11:34)
[2019-03-20] MEDS: NS 1,000 ML IV SCH ×2 (03:24→11:35)
[2019-03-20] MEDS: ZOFRAN IV PRN (06:12)
[2019-03-20] MEDS: MOVANTIK PO SCH ×2 (06:12→06:48)
[2019-03-20] MEDS: PRILOSEC PO SCH (06:12)
[2019-03-20 06:40] LABS: BASO# 0.04 X1000 (0.0-0.2); BASO% 0.2 % (0.0-0.8); EOS# 0.07 X1000 (0.0-0.7); EOS% 0.3 % (0.0-10.0); HEMATOCRIT 28.4 % (42.0-52.0); HEMOGLOBIN 9.1 g/dL (14.0-18.0); IMM GRAN# 0.75 X1000 (0.0-0.04); IMM GRAN% 3.5 % (0.0-0.5); LYMPH# 1.39 X1000 (1.2-3.4); LYMPH% 6.6 % (20.5-51.1); MONO# 1.75 X1000 (0.11-0.59); MONO% 8.2 % (1.7-9.3); MPV 9.8 FL (7.4-10.4); NEUT# 17.22 X1000 (1.4-6.5); NEUT% 81.2 % (42.2-75.2); PLT 344 X1000 (130-400); RBC 2.84 XMIL (4.7-6.1); RDW 13.8 % (11.5-14.5); WBC 21.22 X1000 (4.8-10.8)
[2019-03-20 06:55] LABS: AMYLASE 86 U/L (20-200); LIPASE 60 U/L (13-60)
[2019-03-20 07:01] LABS: AGAP 11; ALBUMIN 2.6 g/dL (3.5-5.0); ALKALINE PHOSPHATASE 247 U/L (32-122); BANDS 3 % (0-1); BUN 10 mg/dL (8-22); CALCIUM 8.1 mg/dL (8.8-10.2); CHLORIDE 101 mmol/L (98-107); COSMO 268; CREATININE 0.8 mg/dL (0.7-1.2); ESTIMATED GFR > 60; GLUCOSE 110 mg/dL (70-104); GOT 45 U/L (10-34); GPT 51 U/L (10-44); LYMPHS 6 % (21-51); MAGNESIUM 2.1 mg/dL (1.5-2.7); MONO 9 % (1-9); POTASSIUM 3.7 mmol/L (3.5-5.1); SEGS 82 % (42-75); SODIUM 134 mmol/L (136-145); TCO2 22 mmol/L (25-35); TOTAL PROTEIN 6.2 g/dL (6.3-8.3)
[2019-03-20 07:02] LABS: POLYCHROM OCCASIONAL
[2019-03-20 07:03] LABS: LARGE PLATELETS OCCASIONAL
--- NOTE | 2019-03-20 09:08 | Diag Imaging Result Doc PS360 ---
EXAM: CT ABD/PELVIS W/IV CONT ONLY 03/20/2019 HISTORY: Acute Pancreatitis TECHNIQUE: This exam was performed using automated exposure control, adjustment of mA or kV according to patient size, and/or use of iterative reconstruction technique. COMMENT: The current study is compared with the previous examination of 03/14/2019. There is a left pleural effusion. There are atelectatic changes in both lower lobes particularly the left lower lobe. There is also atelectasis in the lingula. These findings were not present at the time the previous study. There is edema surrounding the pancreas throughout the anterior pararenal space on the left. There may be some necrosis in the pancreatic head and tail. This was not the case at the time the previous study although there was some edema present in the anterior pararenal space and around the pancreas time the previous study. The kidneys are without evidence of hydronephrosis or mass. There has been cholecystectomy. The appearance of the liver has not changed significantly. The spleen is not enlarged. The adrenal glands are not enlarged. The stomach is somewhat displaced anteriorly by the edema present in the pancreas. There are fluid levels in the colon. The small bowel is not distended. The aorta is not distended. There is mild subcutaneous edema over the flanks which was not present previously. The regional skeleton appears to be intact. Pelvis: There is no free fluid. The urinary bladder is mildly distended. There is some subcutaneous edema over the lateral gluteal regions and size. This was not the case previously. IMPRESSION: Worsening pancreatitis with areas of necrosis in the head and tail. Bibasilar atelectasis particularly on the left with left pleural effusion. Mild subcutaneous edema. Electronically signed by Donaldo Diop 03/20/2019 9:05 AM
[2019-03-20] MEDS: MYLICON PO SCH (09:32)
[2019-03-20] MEDS: MIRALAX PO SCH (09:41)
[2019-03-20 12:31] VITALS: BP 121/72
--- NOTE | 2019-03-20 15:15 | DISCHARGE SUMMARY ---
ADMISSION DATE: 03/14/2019 DISCHARGE DATE: 03/20/2019 REASON FOR DISCHARGE: Patient will be leaving against medical advice. Claims he needs to work. ADMISSION DIAGNOSES: 1. Acute on chronic pancreatitis. 2. Hypertension. 3. Gastroesophageal reflux disease. 4. Back spasms. 5. Anxiety. 6. Tobacco abuse. DISCHARGE DIAGNOSES: 1. Acute on chronic pancreatitis. 2. Hyponatremia, which has improved. 3. Anemia worsening by the day. 4. Leukocytosis that is persistent. HOSPITAL COURSE: Mr. Elvis Schultz is a 43-year-old male with a medical history of acute pancreatitis two other times. Apparently never had to go to the hospital. He was always able to have it managed at home, but this time the pain was so severe he came to the emergency department. His other history is hypertension and GERD. Apparently, symptoms started the day before. He also started having some back spasm with it. He presented to [facility] ER. CT revealed that he had acute pancreatitis with moderate peripancreatic fluid with an area of hypodensity in the pancreatic head showing more edema. He was given IV fluid hydration, antiemetics and pain medications. He continued with elevated white blood cell count. He was continued on Prilosec. He had a couple days worth of IV Robaxin. His antibiotic coverage was Meropenem. blood pressure remained under control. On a daily basis he was becoming a little more anemic and is going to be sent for a CT repeat today and he was re- made NPO yesterday, but today patient decides he is ready to leave AMA. He wants to try and go to work. It is highly advised that he does not on that leave against medical advice. His amylase and lipase is actually normalized today. DISCHARGE VITAL SIGNS: Temperature 98.3 degrees, heart rate 107, respiratory rate 16, blood pressure 121/72, O2 saturation 100% on 2 L nasal cannula. DISCHARGE LAB DATA: White blood cells 21,000, hemoglobin 9, hematocrit 28, platelet count 344,000. His sodium 134, potassium 3.7, BUN 10, creatinine 0.8, glucose 110, calcium 8.1, bilirubin 0.40, magnesium 2.1, AST 45, ALT 51, albumin is 2.6, amylase 86, lipase 60. Blood cultures negative. IMAGING: On 03/14/2019, abdominal x-ray, a normal gas pattern. Abdominal pelvic CT: Findings consistent with acute pancreatitis with moderate peripancreatic fluid. Focal area of hypodensity pancreatic head may represent more focal edema. On 03/15/2019 had an abdominal ultrasound status post cholecystectomy, slightly distended common bile duct at 7.7 mm, which is not unusual for post cholecystectomy state. Today 03/20/[address] worsening pancreatitis with areas of necrosis in the head and tail, bibasilar atelectasis particularly on the left with left pleural effusion with mild subcutaneous edema. Telemetry strip sinus tach. DISCHARGE MEDICATIONS: Discharge medications have not been reconciled. He is on Bystolic at home only. He is on telmisartan and hydrochlorothiazide at home. DISCHARGE DISPOSITION: I guess he is going to go home because he is leaving against medical advice. Again this is been highly, highly ill-advised. Dictated by MICHAEL Ryan for Hermilo Acuna MD Addendum: Patient seen and examined by myself. Agree with MICHAEL note. It reflects my assessment and plan. Patient is leaving hospital against medical advise. He was highly encouraged to stay in the hospital. cc: MICHAEL Ryan MD [facility]
== END 2019-03-20 13:00 | disposition left against medical advice (07) | DRG 439 ==
LOC: P.ED 11:12 → SUATTDRO 11:13 → P.MEDSURG 11:13
PROVIDERS: ATTEND Internal Medicine